=== PATIENT | male | born 1995 | race Caucasian/White ===

== ENCOUNTER 2018-04-15 14:12 | Emergency (ER) | payer OTHER ==
[2018-04-15 14:18] VITALS: BP 126/84
--- NOTE | 2018-04-15 15:18 | ED Physician Documentation ---
History of Present Illness - Stated complaint Stated Complaint: LEG SWOLLEN - Chief complaint Chief Complaint: Wound - History obtained from History obtained from: Patient, Friend - History of Present Illness Timing: Yesterday Pain level max: 3 Pain level now: 3 Improved by: nothing Worsened by: nothing - Additonal information Additional information: Patient is a 23-year-old male who presents to the emergency department with swelling to the right lower extremity after a flight back from [facility] yesterday. He states he also had multiple bug bites, one of which swelled and drained yesterday. Concerned about possible infection. Tetanus is up-to-date. Review of Systems Constitutional: denies: Fever, Chills Throat: denies: Sore throat Cardiac: denies: Chest pain / pressure Respiratory: denies: Dyspnea, Cough, Wheezing GI: denies: Vomiting, Diarrhea Skin: denies: Rash Musculoskeletal: denies: Neck pain, Back pain Neurologic: denies: Headache PD PAST MEDICAL HISTORY - Past Medical History Past Medical History: No - Past Surgical History Past Surgical History: Yes Ortho: ACL reconstruction - Present Medications Home Medications: Ambulatory Orders Medication Instructions Recorded Confirmed Cephalexin [Keflex] 500 mg PO Q6H #28 capsule 04/15/18 Meloxicam 7.5 mg PO QID PRN 04/15/18 04/15/18 diphenhydrAMINE [Benadryl] 25 mg PO QPM PRN 04/15/18 04/15/18 - Allergies Allergies/Adverse Reactions: Allergies Allergy/AdvReac Type Severity Reaction Status Date / Time No Known Drug Allergies Allergy Verified 04/15/18 14:18 - Social History Does the pt smoke?: No Smoking Status: Never smoker Does the pt drink ETOH?: Yes Does the pt have substance abuse?: No - Immunizations Immunizations are current?: Yes PD ED PE NORMAL - Vitals Vital signs reviewed: Yes - General General: Alert and oriented X 3 - HEENT HEENT: Moist mucous membranes - Neck Neck: Supple, no meningeal sign - Cardiac Cardiac: RRR - Respiratory Respiratory: No respiratory distress, Clear bilaterally - Derm Derm: Warm and dry - Extremities Extremities: Other (small ulcerations to the R ankle. no drainage. mild erythema. mild calf swelling and TTP. NVI) - Neuro Neuro: Alert and oriented X 3 Results - Vitals Vitals: Vital Signs - 24 hr 04/15/18 14:16 Temperature 36 C L Heart Rate 61 Respiratory 18 Rate Blood Pressure 126/84 H O2 Saturation 100 Oxygen O2 Source Room air PD MEDICAL DECISION MAKING - ED course Complexity details: considered differential, d/w patient ED course: Patient is a 23-year-old male with what appears to be a mild cellulitis around the right ankle, likely from insect bites. He is also at risk for DVT and did have more swelling in his calf last night and today. Recommended a duplex ultrasound, but he did not want to stay for this. He understands the risks of pulmonary embolism, stroke and . We will still place him on the antibiotics and have him follow-up closely with his PCP. He is well-appearing, nontoxic. Afebrile. Patient informed that he is welcome to return at any time should he change his mind about further evaluation. Patient signed AGAINST MEDICAL ADVICE. This document was made in part using voice recognition software. While efforts are made to proofread this document, sound alike and grammatical errors may occur. - Sepsis Event Vital Signs: Vital Signs - 24 hr 04/15/18 14:16 Temperature 36 C L Heart Rate 61 Respiratory 18 Rate Blood Pressure 126/84 H O2 Saturation 100 Oxygen O2 Source Room air Departure - Departure Disposition: 07 Against Medical Advice Clinical Impression: Cellulitis Qualifiers: Site of cellulitis: extremity Site of cellulitis of extremity: lower extremity Laterality: right Qualified Code(s): L03.115 - Cellulitis of right lower limb Condition: Good Instructions: ED Infec Skin Cellulitis Follow-Up: [facility] [Provider Group] - Tomorrow Prescriptions: Cephalexin [Keflex] 500 mg PO Q6H #28 capsule Comments: Take all antibiotics until gone. You have chosen not to stay for your ultrasound today and recognize that this could lead to a blood clot that goes to your lungs and potentially kill you. Return if you change your mind. Discharge Date/Time: 04/15/18 16:07
== END 2018-04-15 16:07 | disposition left against medical advice (07) ==
LOC: ED 14:12
DX: L03.115 Cellulitis of right lower limb (principal)
CPT/HCPCS: 99283

== ENCOUNTER 2022-12-08 12:47 | Outpatient (CLI) | payer OTHER ==
[2022-12-08 13:35] VITALS: BP 116/73
--- NOTE | 2022-12-08 13:35 | SLEEP CARE CONSULTATION ---
Information from patient questionnaire entered by Maye Garcia. I have reviewed and concur with the information entered by Maye Garcia. This document represents the service I personally performed and the decisions made by me, Vanessa Rivera ARNP. History of Present Illness Service Date and Time: 12/08/2022 1247 Reason for Visit: New patient, Previously diagnosed sleep apnea Chief Complaint: reports: Unrefreshed sleep, Snoring, Excessive daytime sleepiness, Observed pauses in breathing, Fatigue Date of Onset: 3YRS Usual bedtime: 10PM Time it takes to fall asleep: 5MIN Snores at night: Yes Observed to quit breathing while asleep: Yes Sleeps alone due to snoring: No Number of times waking at night: 0-1 Reasons for waking at night: reports: Choking, Gasping for air, Other (significant other wakes him) Toss, Turn, or Twitch while sleeping: No Recalls having dreams: Yes (having more dreams recently about not being able to breathe) Usually gets out of bed at: 545AM; weekends -929 Feels refreshed in the morning: No Morning headache: Yes (1-2 times a month; ABOUT 30MIN AFTER WAKING) Sleepy or fatigued during the day: Yes Ever fallen asleep while driving: Yes (drowsy driving; no accidents) Takes day naps: Yes (1 time weekly; 1-3 hours long) Dreams during day naps: No Prior sleep studies: Yes Year and Where: 03/02/2022 [facility] (Mod GRISEL AHI 22.0) Type of Sleep Study: Polysomnography Additional HPI information: I had the pleasure of seeing VIJAYA DRAKE today regarding the possibility of him having a sleep disorder. His current complaints are excessive daytime sleepiness, fatigue, observed pauses in breathing, snoring and unrefreshed sleep. He states that he had a sleep study and was prescribed a CPAP but because of national shortage due to recall was unable to get set up with a CPAP. - Parasomnia Symptoms Ever been unable to move upon waking from sleep: No Walks in sleep: Yes (last time 4 months ago) Talks in sleep: Yes (has woke up screaming in the past) Ever acted out dreams in sleep: Yes Ever felt weak in the knees when startled or emotional: No Bothered by creepy, crawly, restless sensations in legs: No Problems with memory or concentration: No Subjective Initial [place] Sleepiness Scale score: 16 (12/08/22) Past Medical History Past Medical History: reports: Other (3 left knee surgeries, meniscus issues) Social History The patient's occupation is a [employer]. Patient is Legally and lives in . Have you smoked in the past 12 months: No Alcohol use: Yes Alcohol amount and frequency: 2 GLASSES LESS THAN ONCE A MONTH Caffeine use: Yes Caffeine amount and frequency: 1 DAILY Family History Family history of sleep disordered breathing: Yes Family Hx Sleep Apnea: Mother: Snoring, Father: Snoring, Sleep apnea - Untreated Allergies and Home Medications Known drug allergies: No Drug allergies reviewed: Yes Home medication list reviewed: Yes (Ibuprofen as needed for knee) Review of Systems Weight gain over past 5 years: 5 Cardiovascular: denies: high blood pressure Gastrointestinal: denies: heartburn Neurological: reports: headaches Psychiatric: denies: anxiety, depression, mood disorder Ear/Nose/Throat: reports: wisdom teeth removed. denies: tonsillectomy Endocrine: denies: thyroid disease Physical Exam Vital signs obtained and entered by: MAYE Lopez MA Blood Pressure: 116/73 (LEFT ARM) Cuff size: regular Heart Rate: 93 O2 Saturation: 98 Height: 5 ft 6 in Weight: 204 lb 6.4 oz Body Mass Index: 33.0 BMI Classification: Obese Mouth and throat: narrow oropharynx Soft palate: long Hard palate: normal Uvula: normal Uvula visualization: 25% Mallampati Class III Tongue: enlarged in size with teeth booker on lateral edges Tonsils: 3+/kissing Heart: regular rate and rhythm Lungs: clear bilaterally Impression and Plan 1. Suspected Obstructive Sleep Apnea-Hypopnea Syndrome, as previously diagnosed and as suggested by a history of loud and irregular snoring, observed cessation of breath while asleep, gasping or choking in sleep, unrefreshed sleep, and excessive daytime sleepiness. He was diagnosed in 02/2022 but was not able to get a CPAP due to a shortage of CPAP machines in [place]. He has since moved to this area and is trying to get process restarted. I recommend proceeding to polysomnography to confirm the diagnosis and to assess severity. I obtained agreement to proceed. The pathophysiology of obstructive sleep apnea-hypopnea syndrome was discussed with the patient and health risks of cardiovascular and cerebrovascular disease if not treated. Risks of drowsy driving discussed in detail and patient advised to avoid long distance driving and to ice puller at the first sign of drowsiness. Patient agreed to plan. * Schedule polysomnography * Avoid long distance driving or driving when feeling sleepy. * Avoid alcohol, sedative and muscle relaxant around bedtime. * Attempt to lose weight. * Review instructions provided by trained office staff on how to prepare for the sleep study. * Return for follow-up after sleep study completed. Counseling Topics: Weight loss health impact Visit Type: In Office Time Spent with Patient (minutes): 31 Provider Statement: I spent 100% of the Face to Face Visit with the patient with greater than 50% spent counseling the patient and coordination of care.
== END 2022-12-08 12:48 | disposition home or self-care (01) ==
LOC: SC 12:47
PROVIDERS: ATTEND Nurse Practitioner Family
DX: G47.33 Obstructive sleep apnea (adult) (pediatric) (principal); E66.9 Obesity, unspecified; Z68.33 Body mass index [BMI] 33.0-33.9, adult
CPT/HCPCS: 99203; 99212

== ENCOUNTER 2023-01-17 08:55 | Outpatient (CLI) | payer OTHER | END 2023-01-17 08:56 | disposition home or self-care (01) | LOC: SC 08:55 | PROVIDERS: ATTEND Nurse Practitioner Family | DX: G47.33 Obstructive sleep apnea (adult) (pediatric) (principal); R09.02 Hypoxemia | CPT/HCPCS: 95806 ==

== ENCOUNTER 2023-02-09 08:55 | Outpatient (CLI) | payer OTHER ==
[2023-02-09 09:37] VITALS: BP 122/78
--- NOTE | 2023-02-09 09:37 | SLEEP CARE CONSULTATION ---
Information from patient questionnaire entered by Maye Garcia. I have reviewed and concur with the information entered by Maye Garcia. This document represents the service I personally performed and the decisions made by me, Vanessa Rivera ARNP. History of Present Illness Service Date and Time: 02/09/2023 0855 Initial [place] Sleepiness Scale score: 16 (12/08/22) Current [place] Sleepiness Scale score: 17 (02/09/23) Additional HPI information: VIJAYA DRAKE returns for follow up and results of the recently performed home sleep study. I explained the pathophysiology behind obstructive sleep apnea. We then spent quite a bit of time discussing different treatment options. For mild obstructive sleep apnea, surgery and oral appliance are alternatives to nasal CPAP therapy but in moderate or severe cases, nasal CPAP is the most effective and reliable treatment. I reviewed the impact of weight changes on sleep apnea and strongly recommended losing weight. After some discussion, the patient opted to go with the nasal CPAP therapy. Nasal autoCPAP set at 4-15 cmH20 will be ordered with rationale explained. A manual titration study will be ordered if unable to find optimal pressure with office adjustments. I explained how CPAP machine works and what to expect when using the machine. Using CPAP every night in order to get used to it was emphasized. Patient advised to put CPAP mask on before getting into bed so as not to fall asleep without CPAP. To assist acclimation to CPAP use, it could also be used for a short time during day while reading or watching TV. The patient was instructed to call the CPAP supplier to discuss any mechanical problem that may occur. If the mask given is uncomfortable or is difficult to keep on through the night even with adjustment, contact the CPAP supplier as many will replace with another mask style if notified before 30 days. If snoring or perceives is not getting enough air or too much air from the machine, notify this office. Patient counseled not drink alcohol less than 4 hours before bedtime as it can increase snoring and apnea. Patient was cautioned about risks of drowsy driving until sleepiness symptoms resolve. Sleep Study - Results Type of Sleep Study: Polysomnography (COMPLETED 01/17/23) Prior sleep studies: Yes Year and Where: 03/02/2022 [facility] (Mod GRISEL AHI 22.0) Polysomnography/Home Sleep Study results: Physician Impression: The quality of the study is fair due to partial loss of pulse oximetry signal. The length of the study is adequate (> 240 minutes). Please also see the tabulated and graphic data. 1. Obstructive Sleep Apnea-Hypopnea (ICD-10 G47.33), moderate, with an AHI of 23.5/hr and lamont SaO2 of 76%. During the study, the patient had 145 apneas (145 obstructive, 0 central, 0 mixed) and 30 hypopneas. The longest episode lasted 164.0 seconds. The patient did not sleep supine during this study 2. Hypoxemia (ICD-10 R09.02), moderate, with the lowest oxygen saturation of 76 % and 12.6 minutes with SaO2 under 90%. Baseline oxygen saturation was normal (Average oxygen saturation was 95%). Allergies and Home Medications Known drug allergies: No Drug allergies reviewed: Yes Home medication list reviewed: Yes (no changes) Allergy and home medication list: Allergies No Known Drug Allergies Allergy (Verified 02/08/23 13:42) Review of Systems Review of systems same as previous: Yes (no changes) Physical Exam Vital signs obtained and entered by: MAYE Lopez MA Blood Pressure: 122/78 (LEFT ARM) Cuff size: regular Heart Rate: 103 O2 Saturation: 98 Height: 5 ft 6 in Weight: 202 lb 9.6 oz Body Mass Index: 32.7 BMI Classification: Obese Impression and Plan 1. Obstructive Sleep Apnea-Hypopnea Syndrome, moderate, with lowest oxygen saturation of 76%. Obviously this is the cause of the patients symptoms of unrefreshed sleep, and excessive daytime sleepiness. As mentioned above, the patient will be started on nasal autoCPAP therapy with pressure set at 4-15 cmH2 O. Compliance guidelines also reviewed. A copy of compliance guidelines will be given for reference at check out. 2. Hypoxemia, moderate, with the lowest oxygen saturation of 76 % and 12.6 minutes with SaO2 under 90%. His baseline oxygen saturation was normal with an average oxygen saturation of 95%. * Nasal auto CPAP therapy, pressure at 4-15 cm H2O. * Attempt to lose weight. * Avoid alcohol consumption near bedtime. * Avoid supine sleep until using CPAP. * The patient is again cautioned about driving until sleepiness completely resolves. * Return one month after CPAP obtained. I will assess response to therapy and compliance at that time. Counseling Topics: Weight loss health impact Visit Type: In Office Time Spent with Patient (minutes): 21 Provider Statement: I spent 100% of the Face to Face Visit with the patient with greater than 50% spent counseling the patient and coordination of care.
== END 2023-02-09 08:56 | disposition home or self-care (01) ==
LOC: SC 08:55
PROVIDERS: ATTEND Nurse Practitioner Family
DX: G47.33 Obstructive sleep apnea (adult) (pediatric) (principal); R09.02 Hypoxemia; E66.9 Obesity, unspecified; Z68.32 Body mass index [BMI] 32.0-32.9, adult
CPT/HCPCS: 99212; 99213